=== PATIENT | male | born 1990 | race Caucasian/White ===

== ENCOUNTER 2018-10-22 16:15 | Inpatient (IN) | payer BC ==
[~2018-10-22] VITALS: Ht 177.8 cm; Wt 89.8 kg
[2018-10-22] MEDS ORDERED: HYDR-3326 PO (16:26)
[2018-10-22] MEDS ORDERED: IV NORMAL SALINE 1000 ML BAG IV ONE ×2 (16:30→17:45)
[2018-10-22 16:52] LABS: BASOPHILS % (AUTO) 0.1 % (0.0-2.0); HEMATOCRIT 43.5 % (36.7-47.1); HEMOGLOBIN 14.3 g/dL (12.5-16.3); LYMPHOCYTES # (AUTO) 0.6 K/uL (20.0-40.0); LYMPHOCYTES % (AUTO) 3.3 % (20.5-51.5); MEAN CORPUSCULAR HEMOGLOBIN 29.8 uug (23.8-33.4); MEAN CORPUSCULAR HGB CONC 33 g/dL (32.5-36.3); MEAN CORPUSCULAR VOLUME 90.9 fL (73.0-96.2); MONOCYTES # (AUTO) 0.4 K/uL (2.0-10.0); MONOCYTES % (AUTO) 2.3 % (0.0-11.0); NEUTROPHILS # (AUTO) 16.4 K/uL (1.8-8.9); NEUTROPHILS % (AUTO) 94.3 % (38.5-71.5); PLATELET COUNT (AUTO) 201 K/uL (152-348); RED BLOOD CELL COUNT(AUTO) 4.79 MIL/uL (4.06-5.63); WHITE BLOOD COUNT (AUTO) 17.4 K/uL (3.6-10.2)
[2018-10-22 17:00] LABS: CREATININE 1.3 mg/dL (0.6-1.3); POTASSIUM 3.3 mmol/L (3.5-5.1)
[2018-10-22 17:17] LABS: BILIRUBIN,DIRECT 0.1 mg/dL (0.0-0.2); BILIRUBIN,TOTAL 0.3 mg/dL (0.2-1.0); TOTAL PROTEIN, SERUM 6.5 g/dL (6.4-8.2)
[2018-10-22] MEDS ORDERED: SWABABLE VALVE TRANSFER SET EA MC ONE (17:47)
[2018-10-22] MEDS ORDERED: IV NORMAL SALINE 250 ML IV ONE (17:47)
[2018-10-22] MEDS ORDERED: NORMAL SALINE FLUSH 10 ML DISP.SYRIN ONE (17:47)
[2018-10-22] MEDS ORDERED: IOHEXOL 350 100 ML INFUS..BTL ONE (17:47)
[2018-10-22] MEDS ORDERED: LEVOFLOXACIN 750 MG/D5W 150 ML PIGGYBACK IV ONE (19:15)
[2018-10-22] MEDS ORDERED: LEVOFLOXACIN 750MG/D5W 150 ML IV ONE (19:24)
[2018-10-22 20:20] VITALS: BP 144/52
[2018-10-22] MEDS ORDERED: ONDANSETRON 4 MG/2 ML VIAL IV PRN (20:30)
[2018-10-22] MEDS ORDERED: ACETAMINOPHEN 325 MG TABLET PO PRN (20:30)
[2018-10-22] MEDS ORDERED: HYDROCODONE/APAP 5-325MG TABLET PO PRN (20:30)
[2018-10-22] MEDS ORDERED: ALBUTEROL SULFATE 2.5 MG/3 ML NEBU NEB PRN (20:30)
[2018-10-22] MEDS ORDERED: IPRATROPIUM BROMIDE 0.5 MG/2.5 ML NEBU NEB PRN (20:30)
[2018-10-22] MEDS ORDERED: MAGNESIUM HYDROXIDE 30 ML LIQUID UDC PO PRN (20:30)
[2018-10-22] MEDS ORDERED: Z GUARD REMEDY PASTE 57 GM TUBE TOP PRN (20:30)
[2018-10-22] MEDS: IV NS 1000 ML 1,000 ML IV PRN (20:41)
[2018-10-22] MEDS: CEFTRIAXONE 1 G in IV DEXTROSE 5% 50 ML IV SCH (20:52)
[2018-10-22] MEDS: CULTURELLE CAPSULE PO SCH (20:53)
[2018-10-22] MEDS: AZITHROMYCIN IV 500 MG in IV DEXTROSE 5% 250 ML IV SCH (21:39)
[2018-10-22] MEDS: ZOLPIDEM 5 MG TABLET PO PRN (22:03)
[2018-10-22] MEDS ORDERED: POTASSIUM CHLORIDE 20 MEQ TAB.PRT.SR PO ONE (22:30)
[2018-10-23] VITALS: BP 102/44
[2018-10-23 04:00] VITALS: BP 104/61
[2018-10-23 05:19] LABS: BASOPHILS % (AUTO) 0.1 % (0.0-2.0); HEMATOCRIT 39.8 % (36.7-47.1); HEMOGLOBIN 13.5 g/dL (12.5-16.3); LYMPHOCYTES % (AUTO) 8.4 % (20.5-51.5); MEAN CORPUSCULAR HEMOGLOBIN 30.6 uug (23.8-33.4); MEAN CORPUSCULAR HGB CONC 34 g/dL (32.5-36.3); MEAN CORPUSCULAR VOLUME 90.2 fL (73.0-96.2); MONOCYTES # (AUTO) 1.1 K/uL (2.0-10.0); MONOCYTES % (AUTO) 9.1 % (0.0-11.0); NEUTROPHILS % (AUTO) 82.4 % (38.5-71.5); PLATELET COUNT (AUTO) 170 K/uL (152-348); RED BLOOD CELL COUNT(AUTO) 4.41 MIL/uL (4.06-5.63); WHITE BLOOD COUNT (AUTO) 12.1 K/uL (3.6-10.2)
[2018-10-23 05:32] LABS: PHOSPHOROUS 3.6 mg/dL (2.5-4.9); POTASSIUM 4.5 mmol/L (3.5-5.1)
[2018-10-23 06:04] LABS: THYROID STIMULATING HORMONE 1.104 mIU/mL (0.358-3.740)
[2018-10-23] MEDS: IV NS 1000 ML 1,000 ML IV PRN ×2 (06:36→16:43)
[2018-10-23] MEDS: CULTURELLE CAPSULE PO SCH ×2 (08:47→20:28)
[2018-10-23 11:09] VITALS: BP 106/61
[2018-10-23 15:13] VITALS: BP 110/64
[2018-10-23 20:03] VITALS: BP 115/65
[2018-10-23] MEDS: CEFTRIAXONE 1 G in IV DEXTROSE 5% 50 ML IV SCH (20:24)
[2018-10-23] MEDS: AZITHROMYCIN IV 500 MG in IV DEXTROSE 5% 250 ML IV SCH (21:21)
[2018-10-23] MEDS: ZOLPIDEM 5 MG TABLET PO PRN (21:21)
[2018-10-24 00:21] VITALS: BP 114/72
[2018-10-24] MEDS: IV NS 1000 ML 1,000 ML IV PRN (04:53)
[2018-10-24 05:24] VITALS: BP 115/72
[2018-10-24] MEDS: CULTURELLE CAPSULE PO SCH (08:33)
[2018-10-24 11:18] VITALS: BP 119/68
[2018-10-24] MEDS ORDERED: LEVO750T21 PO (12:51)
== END 2018-10-24 15:00 | disposition home or self-care (01) | DRG 871 ==
LOC: ER 16:17 → CCU 20:07 → TELE3 10-23 07:16 → TELE-TD3 10-23 07:36 → MEDSURG3 10-23 18:56 → TELE3 10-23 18:58
DX: A41.9 Sepsis, unspecified organism (principal); J15.9 Unspecified bacterial pneumonia; J96.01 Acute respiratory failure with hypoxia; R73.9 Hyperglycemia, unspecified; E87.6 Hypokalemia; R79.1 Abnormal coagulation profile; Z98.890 Other specified postprocedural states
CPT/HCPCS: 36415; 70030-TC; 71275; 83735; 84100; 84443; 85025; 87040; 87400; 93005; A4217; A4663; G0378; J0456; J0696; J1956; J3490; J7030; J7050; J7060; Q9967